=== PATIENT | male | born 1970 | race Caucasian/White ===

== ENCOUNTER 2017-11-10 23:47 | Emergency (ER) | payer SELFPAY ==
[2017-11-11 02:26] LABS: URINE BLOOD (Dip) POC 3+ (NEGATIVE); URINE GLUCOSE (Dip) POC Negative (NEGATIVE); URINE KETONES (Dip) POC Trace (NEGATIVE); URINE LEUKOCYTE EST (Dip) POC 1+ (NEGATIVE); URINE NITRITE (Dip) POC Positive (NEGATIVE); URINE TOTAL PROTEIN POC 2+ (NEGATIVE)
[2017-11-11] MEDS: CIPROFLOXACIN 500 MG TAB PO (02:54)
[2017-11-11] MEDS: PHENAZOPYRIDINE 100 MG TAB PO (02:54)
== END 2017-11-11 03:00 | disposition home or self-care (01) ==
LOC: E/R 23:47
DX: N39.0 Urinary tract infection, site not specified (principal)
CPT/HCPCS: 81003; 99283